=== PATIENT | male | born 1980 | race Caucasian/White ===

== ENCOUNTER 2017-05-19 04:15 | Emergency (ER) | payer MEDICAID, OTHER ==
[~2017-05-19] VITALS: Ht 182.9 cm; Wt 76.9 kg
[2017-05-19 04:19] VITALS: BP 154/100
== END 2017-05-19 05:28 | disposition home or self-care (01) ==
LOC: ED 05:22
DX: Z11.3 Encounter for screening for infections with a predominantly sexual mode of transmission (principal)
CPT/HCPCS: 99281

== ENCOUNTER 2017-11-03 13:15 | Emergency (ER) | payer MEDICAID, OTHER ==
[~2017-11-03] VITALS: Ht 190.5 cm; Wt 79.8 kg
[2017-11-03] MEDS ORDERED: DIPH,PERTUSS(ACELL),TET VAC/PF 0.5 ML IM-VACC ONE ×2 (14:00→14:09)
[2017-11-03] MEDS ORDERED: SODIUM CHLORIDE FLUSH 10ML SYR IVF ONE (14:30)
[2017-11-03] MEDS ORDERED: AMPICILLIN/SULBACTAM 3 GM in SODIUM CHLORIDE 0.9% 100 ML IVPB ONE (14:30)
[2017-11-03] MEDS ORDERED: BACITRACIN ZINC OINT 500U/GM, 0.9 GM ONE (16:32)
[2017-11-03 17:20] VITALS: BP 121/84
== END 2017-11-03 17:23 | disposition home or self-care (01) ==
LOC: ED 17:00
DX: L03.011 Cellulitis of right finger (principal); S60.031A Contusion of right middle finger without damage to nail, initial encounter; S60.041A Contusion of right ring finger without damage to nail, initial encounter; Y04.0XXA Assault by unarmed brawl or fight, initial encounter; Y93.89 Activity, other specified; Y99.8 Other external cause status; Y92.89 Other specified places as the place of occurrence of the external cause
CPT/HCPCS: 29125; 73130; 90471; 90715; 96365; 99284; J0295

== ENCOUNTER 2017-11-05 14:16 | Emergency (ER) | payer MEDICAID ==
[~2017-11-05] VITALS: Ht 190.5 cm; Wt 82.1 kg
[2017-11-05 14:18] VITALS: BP 150/77
== END 2017-11-05 16:33 | disposition home or self-care (01) ==
LOC: ED 16:15
DX: S61.451A Open bite of right hand, initial encounter (principal); I10 Essential (primary) hypertension; W50.3XXA Accidental bite by another person, initial encounter; Y93.89 Activity, other specified; Y92.89 Other specified places as the place of occurrence of the external cause; Y99.8 Other external cause status; Z48.00 Encounter for change or removal of nonsurgical wound dressing
CPT/HCPCS: 99281